=== PATIENT | female | born 1965 | race Caucasian/White ===

== ENCOUNTER 2016-08-28 09:07 | Day surgery (SDC) | payer OTHER ==
[~2016-08-28 09:07] MED LIST: CEFAZOLIN SODIUM 2 GRAM PREMIX 100 ML IV PRN; FENTANYL 100 MCG/2 ML VIAL ONE; MIDAZOLAM HCL 1 MG/ML 2ML VIAL ONE
[2016-08-28] MEDS ORDERED: LACTATED RINGERS 1,000 ML ONE (09:19)
[2016-08-28] MEDS ORDERED: IV START KIT ONE (09:19)
[2016-08-28] MEDS ORDERED: MIDAZOLAM HCL 1 MG/ML 2ML VIAL ONE (10:16)
[2016-08-28] MEDS ORDERED: ISOSULFAN BLUE ONE (10:49)
[2016-08-28] MEDS ORDERED: BUPIVACAINE 0.5% W/EPI SDV 30 ML VIAL ONE (10:49)
[2016-08-28] MEDS ORDERED: DIPHENHYDRAMINE HCL 50 MG/1 ML VIAL ONE (12:30)
[2016-08-28] MEDS ORDERED: PROPOFOL 20 ML IV ONE (12:30)
[2016-08-28] MEDS ORDERED: DEXAMETHASONE SOD PHOS 4 MG/1 ML VIAL ONE (12:30)
[2016-08-28] MEDS ORDERED: LIDOCAINE 2% (MULTI DOSE) 10 ML VIAL ONE (12:30)
[2016-08-28] MEDS ORDERED: ONDANSETRON 4 MG/2ML 2 ML VIAL ONE (12:30)
[2016-08-28] MEDS ORDERED: HYDROMORPHONE HCL 1 MG/ML SYRINGE IV PRN (12:31)
[2016-08-28] MEDS ORDERED: FENTANYL 100 MCG/2 ML VIAL IV PRN (12:31)
[2016-08-28] MEDS ORDERED: NALOXONE HCL 0.4 MG/ML VIAL IV PRN (12:31)
[2016-08-28] MEDS ORDERED: EPHEDRINE SULFATE UD SYR 25 MG 25 MG/5 ML SYRINGE IV ONE ×2 (12:31→12:43)
[2016-08-28] MEDS ORDERED: PROMETHAZINE HCL 25 MG/ML VIAL IM PRN (12:31)
[2016-08-28] MEDS ORDERED: ATROPINE SULFATE 0.4 MG/1 ML VIAL IV PRN (12:31)
[2016-08-28] MEDS ORDERED: ONDANSETRON 4 MG/2ML 2 ML VIAL IV PRN ×2 (12:31→15:38)
[2016-08-28] MEDS ORDERED: FENTANYL 100 MCG/2 ML VIAL ONE ×3 (12:38→15:05)
[2016-08-28] MEDS ORDERED: LACTATED RINGERS 1,000 ML IV SCH (12:45)
[2016-08-28] MEDS ORDERED: KETOROLAC TROMETHAMINE 30 MG/ML 1 ML VIAL ONE (14:15)
[2016-08-28] MEDS ORDERED: OXYCODONE/ACETAMINOPHEN 5/325 MG TABLET PO PRN (15:38)
[2016-08-28] MEDS ORDERED: MORPHINE SULFATE 2 MG/ML SYRINGE IV PRN (15:38)
[2016-08-28] MEDS ORDERED: KETOROLAC TROMETHAMINE 30 MG/ML 1 ML VIAL IV PRN (20:15)
--- NOTE | 2016-08-29 08:51 | OP ---
Geneva Lugo [id number] PROCEDURE: [place] lymph node injection. DESCRIPTION: This is a 51-year-old female undergoing lumpectomy and sentinel lymph node biopsy for invasive ductal carcinoma of the right breast. In the preoperative area she was injected with Technetium labeled Sulfur Colloid. Preinjection and postinjection assays were measured with an injected dose calculated at 1, 2, 3, 4 microcuries. The details to the operation will be delineated in a separate dictation. JOB: [id number]
--- NOTE | 2016-08-29 09:14 | OP ---
Geneva Lugo [id number] DATE: 08/28/2016 PREOPERATIVE DIAGNOSIS: Invasive ductal carcinoma, right breast. POSTOPERATIVE DIAGNOSIS: Invasive ductal carcinoma,, right breast. PROCEDURE: Right partial mastectomy, sentinel lymph node biopsy. SURGEON: Wili Kaiser M.D. PLANS EXAMINER: Cyril. ANESTHESIA: General endotracheal. INDICATION: This is a 51-year-old female who has biopsy proven invasive ductal carcinoma of the right breast, this is palpable. She presents for lumpectomy with sentinel lymph node biopsy. DESCRIPTION: With informed consent she was injected with Technetium labeled Sulfur Colloid in the preoperative area. Approximately an hour later she was taken back to the operating room and laid supine on the operating room table. General endotracheal anesthetic was administered. The right breast and axillary region were prepped and draped in a sterile fashion. Two mL of lymphazurin dye were injected in the subareolar region of the upper outer breast. This was gently messaged. We used a Galaxy probe to identified an area of increased radioactivity at the base of the axilla. Local anesthetic was administered. An oblique incision was made. We dissected down into the axillary tissue. We first identified blue lymphatic and followed this to a node. The node was dissected free with clips placed on feeding lymphatics and blood vessels. When this node was excised it had an EX vivo count of 312 at 10 seconds. We still had significant radioactivity within the axilla. I dissected and found another node with some activity. This node was not blue, it was larger, however. Clips were placed and it was excised. It had a 10 second count of 105, this was labeled as sentinel lymph node number 2. Deeper in the axilla was a smaller firmer node. This also was clipped and excised. It had a 10 second count of 763. It did have some blue hue to it. This is most likely the true sentinel node. After removing this third node the radioactivity dropped off significantly with a 10 second count of only 27. The wound was irrigated. We appeared to have adequate hemostasis. The wound was closed in layers with deeper 3-0 Vicryl and then running subcuticular 4-0 Monocryl in the skin. I made an incision on the upper inner part of the areola. A skin flap was creased in the upper inner breast and then under the areola. Using a combination of sharp dissection and electrocautery I dissected around the palpable abnormality. We dissected down to the chest wall. This created a fairly large lumpectomy specimen. Once it was excised it was labeled with a short stitch superior, long stitch lateral, and a double stitch deep. This was handed off to pathology. The wound was irrigated with sterile water. We appeared to have adequate hemostasis. I did reapproximate the breast capsule with some 3-0 Vicryl and the skin was closed with a running subcuticular 4-0 Monocryl. Mastisol and Steri-Strips were placed to both incisions. Sterile dressings were applied. She was hemodynamically stable during the procedure and was taken to the recovery room in stable condition. Note was made that needle, instrument, and lap counts were reported as correct at the time of closure. JOB: [id number] CC: Dr. Cinda Wolf
--- NOTE | 2016-08-30 13:59 | SURGPATH ---
[facility] [address] [place] [id number] Patient Name: JAIDEN BARRIOS MR#: [id number] : 1965 Gender: F Specimen #: [id number] Collected: 08/28/2016 Received: 08/29/2016 Reported: 11/16/2016 Submitting Phys: JAQUI CASTRO Copy To Phys: [facility] Amended Report Reason: PATHOLOGIST UPDATE Comment: Changed distances to two margins. Original Text will be in double brackets [[ ]] NEW TEXT WILL BE IN BOLD PRINT Clinical History / Pre-Operative Diagnosis: Invasive ductal carcinoma, right breast Specimen Source / Surgical Procedure Performed: #1-rIGHT axillary sentinel lymph node #1; #2-rIGHT axillary sentinel lymph node #2; #3-right axillary sentinel lymph node #3; #4-right breast lumpectomy (short-superior, long-lateral, double-deep) HIGH PRIORITY DIAGNOSIS. REQUIRES CLINICAL ATTENTION Interpretation: 1. LYMPH NODE, RIGHT AXILLARY SENTINEL #1, BIOPSY: - POSITIVE FOR METASTATIC CARCINOMA IN ONE OUT OF ONE LYMPH NODE (1/). - INVOLVED LYMPH NODE MEASURES 0.2 CM IN MAXIMUM DIMENSION. - TUMOR DOES NOT EXTEND BEYOND LYMPH NODE CAPSULE. 2. LYMPH NODE, RIGHT AXILLARY SENTINEL #2, BIOPSY: - POSITIVE FOR METASTATIC CARCINOMA IN ONE OUT OF ONE LYMPH NODE (1/). - INVOLVED LYMPH NODE MEASURES 0.7 CM IN MAXIMUM DIMENSION. - TUMOR EXTENDS BEYOND LYMPH NODE CAPSULE. 3. LYMPH NODE, RIGHT AXILLARY SENTINEL #3, BIOPSY: - NO EVIDENCE OF MALIGNANCY IN ONE LYMPH NODE (0/1). 4. BREAST, RIGHT, LUMPECTOMY: - INVASIVE DUCTAL CARCINOMA, GRADE 2, WITH ASSOCIATED DUCTAL CARCINOMA IN SITU, SOLID AND CRIBRIFORM TYPES, INTERMEDIATE NUCLEAR GRADE. - STAGE: pT3, (sn)pN1a. - SEE SYNOPTIC REPORT. BREAST CANCER CASE SUMMARY: SPECIMEN IDENTIFICATION: Right breast, lumpectomy, with sentinel node, without other nodes TUMOR SITE: Upper inner quadrant TUMOR SIZE: Dimension of largest focus of invasion: 6.2 cm TUMOR FOCALITY: Single focus of invasive carcinoma HISTOLOGIC TYPE: Invasive ductal carcinoma TNM DESCRIPTORS: Not applicable PRIMARY TUMOR STAGE: pT3: Tumor >50 mm in greatest dimension REGIONAL LYMPH NODE STAGE: sn: Only sentinel nodes evaluated pN1a: Metastases in 1 to 3 axillary lymph nodes IMER COMBINED HISTOLOGIC GRADE: Grade 2 (Total score 7 ) TUBULE FORMATION: Minimal - less than 10% (score=3) NUCLEAR PLEOMORPHISM: Marked variation in size (score=3) MITOTIC RATE: Score=1 SKIN INVOLVEMENT: Skin not present SKELETAL MUSCLE INVOLVEMENT: Skeletal muscle not present ASSOCIATED DUCTAL CARCINOMA IN SITU: DCIS is present ESTIMATED EXTENT OF DCIS: Greatest dimension: Multiple foci over a 5.5 cm maximum distance Number of blocks with DCIS: 11 Number of blocks examined: 12 ARCHITECTURAL PATTERN OF DCIS: Solid and cribriform NUCLEAR GRADE OF DCIS Grade II (intermediate) NECROSIS IN DCIS: Present, focal LOBULAR CARCINOMA IN SITU (LCIS): Not identified MARGINS: Margins uninvolved by invasive carcinoma: Distance from closest margin: 2 mm, superior Distance from superior margin: 2 mm Distance from inferior margin: ++5 mm++ [[12 mm]] Distance from anterior margin: 5 mm Distance from posterior margin: 8 mm Distance from medial margin: 4 mm Distance from lateral margin: 4 mm Margins uninvolved by DCIS: Distance from closest margin: 2 mm, anterior ++and posterior++ Distance from superior margin: 3 mm Distance from inferior margin: 5 mm Distance from anterior margin: 2 mm Distance from posterior margin: ++2 mm++ [[5 mm]] Distance from medial margin: 4 mm Distance from lateral margin: 10 mm LYMPH NODES: Total nodes involved:Total nodes examined (including sentinel nodes): ( 2 / 3 ) Total sentinel nodes involved / Total sentinel nodes examined: ( 2 / 3 ) Size of largest metastasis: 7 mm Extranodal extension: Present Number of lymph nodes with macrometastases (>2.0 mm): 1 Number of lymph nodes with micrometastases (>0.2 mm to 2.0 mm): 1 Number of lymph nodes with isolated tumor cells (d0.2 mm): 0 RESPONSE TO PRESURGICAL THERAPY IN THE BREAST: No known presurgical therapy RESPONSE TO PRESURGICAL THERAPY IN THE LYMPH NODES: No known presurgical therapy LYMPH VASCULAR INVASION: Present DERMAL LYMPH VASCULAR INVASION: Skin not present MICROCALCIFICATIONS: Present in DCIS and invasive carcinoma ANCILLARY STUDIES: ER: Positive (100%, strong intensity) (Estrogen receptor clone [id number]) PgR: Positive (100%, strong intensity) (Progesterone receptor clone 16) HER2: Negative (1+) (IHC, clone [id number]) Performed on prior case [id number] ADDITIONAL PATHOLOGIC FINDINGS: None Electronically Signed Out Keagan Freitas M.D., Ph.D. Gross Description: #1 The specimen is received in a formalin filled container labeled with the patient's name and "right axillary sentinel lymph node #1". It focally fatty, yellow-collins tentatively identified lymph node is 1.8 x 1.0 x 0.8 cm. The specimen is multiply cross section to reveal extensive fatty replacement. Totally embedded as four sections in cassette #1. #2 The specimen is received in a formalin filled container labeled with the patient's name and "right axillary sentinel lymph node #2". A lobular excision of yellow-collins, fibrofatty tissue is 3.5 x 1.4 x 1 cm. Sectioning reveals two fatty, yellow-collins tentatively identified lymph nodes, 1.4 x 0.7 x 0.5 cm and 2.0 x 1.2 x 1 cm. The smaller node is inked black. Each is multiply cross sectioned to reveal extensive fatty replacement. Totally embedded in cassette #2. #3 The specimen is received in a formalin filled container labeled with the patient's name and "right axillary sentinel lymph node #3". A lobular biopsy of yellow-collins, fibrofatty tissue is 1.3 x 1.0 x 0.8 cm. Sectioning reveals a 0.8 x 0.6 x 0.4 cm fatty, yellow-collins tentatively identified lymph node. Totally embedded as three sections in cassette #3. #4 The specimen is received in a formalin filled container labeled with the patient's name and "right breast lumpectomy". SPECIMEN: Right breast lumpectomy Fixation: Time intact specimen was in formalin 19 hours; time cut specimen was in formalin, 7.5 hours Tissue(s) included: Right breast tissue Section, unsectioned before receipt: Unsectioned Weight:81 grams Dimensions: 7 cm medial to lateral, 5.5 cm from anterior to posterior, 5 cm from superior to inferior Dimensions and description of skin (if included): Not included Orientation (if specified): Short-superior, long-lateral, double-deep (posterior) Margin designation: anterior orange, posterior black, superior blue, inferior green, medial red, lateral yellow. TUMOR: Size: 6.2 cm medial to lateral, 3.6 cm superior to inferior, 4.2 cm anterior to posterior Descriptive features: Ill-defined, stellate and gritty melo-collins Status of surgical margins: 0.5 cm-anterior and medial, 1 cm-superior and inferior, 2 cm-posterior, 2.5 cm-lateral Correlation with imaging studies: Not applicable Other(s): The specimen is multiply sectioned perpendicular to the medial/lateral axis, into 12 slices, to reveal predominantly soft lobular adipose tissue with a small to moderate amount of dense, pale lópez fibroglandular tissue. The mass spans slice #2-#7. Sections are submitted from medial to lateral respectively. TISSUE(S) SUBMITTED FOR MICROSCOPIC EVALUATION: 4A-two perpendicular sections from slice #1, medial end 4B-anterior half of slice #2, including medial edge of the mass 4C-posterior half of slice #2 4D-anterior third from slice #5, including mass 4E-superior half of middle third of slice #5, including mass 4F-inferior half of middle third of slice #5, including mass 4G-posterior third from slice #5 4H-anterior third from slice #7, including lateral edge of mass 4I-superior half of middle third of slice #7, including lateral edge of mass 4J-inferior half of middle third of slice #7, including lateral edge of mass 4K-posterior third of slice #7 4L-two perpendicular sections from slice #12, lateral end Mart Hutchison Microscopic Description: 1. Examination of multiple levels from the right axillary sentinel lymph node #1 biopsy shows one lymph node partially involved by metastatic carcinoma. The involved lymph node measures 0.2 cm in maximum dimension. Tumor does not extend beyond the lymph node capsule. 2. Examination of multiple levels from the right axillary sentinel lymph node #2 biopsy shows one lymph node partially involved by metastatic carcinoma. The involved lymph node measures 0.7 cm in maximum dimension. Tumor extends beyond the lymph node capsule. 3. Examination of multiple levels from the right axillary sentinel lymph node #3 biopsy shows a single histologically unremarkable lymph node. There is no evidence of malignancy. 4. Examination of multiple sections from the right breast lumpectomy specimen shows invasive ductal carcinoma with associated ductal carcinoma in situ, solid and cribriform types, intermediate nuclear grade. Please see synoptic report for complete details. Amendments: Amended: 11/16/2016 by Keagan Freitas M.D., Ph.D. Previous Signout Date: 08/30/2016 1: [id number] 2: 20071 3: [id number] 4: [id number], [id number] C50.211
== END 2016-08-28 16:05 | disposition home or self-care (01) ==
LOC: SDC 09:07
PROVIDERS: ATTEND Surgery
PROC: 0HBT0ZZ Excision of Right Breast, Open Approach (ICD-10-PCS; principal; 2016-08-28)
PROC: 0HBT0ZX Excision of Right Breast, Open Approach, Diagnostic (ICD-10-PCS; 2016-08-28)
DX: C50.111 Malignant neoplasm of central portion of right female breast (principal); Z85.828 Personal history of other malignant neoplasm of skin; E11.9 Type 2 diabetes mellitus without complications; R91.8 Other nonspecific abnormal finding of lung field
CPT/HCPCS: 38792; 19301; 38525; J1200; J3010 ×4; J1100; A9270; J1885; J2250; J2405; J7120; Q9968; J2001; A9541

== ENCOUNTER 2016-10-23 11:53 | Day surgery (SDC) | payer OTHER ==
[~2016-10-23 11:53] MED LIST changes: +CEFAZOLIN SODIUM 2 GRAM PREMIX 100 ML IV ONE; +IV START KIT ONE; +LACTATED RINGERS 1,000 ML ONE; +ONDANSETRON 4 MG/2ML 2 ML VIAL ONE; +PROPOFOL 20 ML IV ONE
[2016-10-23] MEDS ORDERED: Heparin Sodium Flush 50 unit/5 ml syringe ONE (12:31)
[2016-10-23] MEDS ORDERED: BUPIVACAINE 0.5% W/EPI SDV 30 ML VIAL ONE (12:31)
[2016-10-23] MEDS ORDERED: ISOSULFAN BLUE ONE (12:31)
[2016-10-23] MEDS ORDERED: LIDOCAINE 1%/EPI 1:100,000 (MULTI DOSE) 30 ML VIAL ONE (12:31)
[2016-10-23] MEDS ORDERED: SODIUM CHLORIDE 0.9% 50 ML ONE (12:31)
[2016-10-23] MEDS ORDERED: BUPIVACAINE 0.5% (PRES FREE) 30 ML VIAL ONE (12:31)
[2016-10-23] MEDS ORDERED: LABETALOL HCL 5 MG/ML 20ML VIAL IV PRN (12:49)
[2016-10-23] MEDS ORDERED: HYDRALAZINE HCL 20 MG/1 ML VIAL IV PRN (12:49)
[2016-10-23] MEDS ORDERED: ATROPINE SULFATE 0.4 MG/1 ML VIAL IV PRN (12:49)
[2016-10-23] MEDS ORDERED: ONDANSETRON 4 MG/2ML 2 ML VIAL IV PRN ×2 (12:49→17:04)
[2016-10-23] MEDS ORDERED: MEPERIDINE 25 MG/ML SYRINGE IV PRN (12:49)
[2016-10-23] MEDS ORDERED: NALOXONE HCL 0.4 MG/ML VIAL IV PRN (12:49)
[2016-10-23] MEDS ORDERED: PROMETHAZINE HCL 25 MG/ML VIAL IM PRN (12:49)
[2016-10-23] MEDS ORDERED: FENTANYL 100 MCG/2 ML VIAL IV PRN (12:49)
[2016-10-23] MEDS ORDERED: DEXAMETHASONE SOD PHOS 4 MG/1 ML VIAL ONE (12:51)
[2016-10-23] MEDS ORDERED: LACTATED RINGERS 1,000 ML IV SCH ×2 (13:00→17:04)
[2016-10-23] MEDS ORDERED: EPHEDRINE SULFATE UD SYR 25 MG 25 MG/5 ML SYRINGE IV ONE (13:19)
[2016-10-23] MEDS ORDERED: FENTANYL 100 MCG/2 ML VIAL ONE ×3 (13:30→15:01)
[2016-10-23] MEDS ORDERED: GLYCOPYRROLATE 0.2 MG/ML 1ML VIAL ONE (13:36)
[2016-10-23] MEDS ORDERED: DIPHENHYDRAMINE HCL 50 MG/1 ML VIAL ONE (15:51)
--- NOTE | 2016-10-23 16:17 | RAD ---
ANNIE for CATHETER/TUBE PLCMT HISTORY: Port-A-Cath catheter placement. COMPARISONS: None. FINDINGS: 2 fluoroscopic images were submitted for review during placement of a Port-A-Cath catheter. The tip projects at the approximate location of the atrial caval junction. A total of 29.5 seconds of fluoroscopy was utilized for the examination. IMPRESSION: 1. Intraoperative fluoroscopy for placement of a Port-A-Cath catheter as discussed above.
--- NOTE | 2016-10-23 16:25 | RAD ---
CHEST - 1 VIEW HISTORY: Port-A-Cath catheter placement. COMPARISONS: None. FINDINGS: A single view of the chest was performed demonstrating an indwelling left-sided Port-A-Cath catheter. The tip appears to project at the atrial caval junction. No pneumothorax is visualized. There are postsurgical changes within the right axillary region with what is likely a drainage catheter within the inferior portion of the right axilla. The heart size is appropriate. IMPRESSION: 1. Placement of a left-sided Port-A-Cath catheter with its tip projecting at the expected location of the atrial caval junction. No pneumothorax is visualized. 2. Postsurgical changes within the right axilla with what is likely a drainage catheter within the inferior portion of the right axilla.
[2016-10-23] MEDS ORDERED: HYDROMORPHONE HCL 1 MG/ML SYRINGE ONE (16:28)
[2016-10-23] MEDS: HYDROMORPHONE HCL 1 MG/ML SYRINGE IV PRN ×2 (16:36→16:43)
[2016-10-23] MEDS ORDERED: ACETAMINOPHEN 325 MG TABLET PO PRN (17:04)
[2016-10-23] MEDS ORDERED: DIPHENHYDRAMINE HCL 50 MG/1 ML VIAL IV PRN (17:04)
[2016-10-23] MEDS ORDERED: OXYCODONE HCL 5 MG TABLET PO PRN (17:04)
[2016-10-23] MEDS ORDERED: KETOROLAC TROMETHAMINE 30 MG/ML 1 ML VIAL IV PRN (17:04)
[2016-10-23] MEDS ORDERED: MORPHINE SULFATE 2 MG/ML SYRINGE IV PRN (17:04)
[2016-10-23] MEDS ORDERED: MORPHINE SULFATE 4 MG/ML SYRINGE IV PRN (17:13)
[2016-10-23] MEDS ORDERED: MORPHINE SULFATE 10 MG/ML SYRINGE IV PRN (17:14)
[2016-10-23] MEDS ORDERED: PUMP TUBING ONE (17:28)
--- NOTE | 2016-10-23 18:43 | OP ---
JAIDEN BARRIOS [id number] DATE OF OPERATION: October 23, 2016 PREOPERATIVE DIAGNOSIS: Invasive ductal carcinoma right breast with axillary metastasis. POSTOPERATIVE DIAGNOSIS: Invasive ductal carcinoma right breast with axillary metastasis. PROCEDURE: 1. RIGHT COMPLETION AXILLARY LYMPH NODE DISSECTION. 2. LEFT SUBCLAVIAN POWERPORT PLACEMENT. SURGEON: Wili Kaiser M.D. SPARK PLUG TESTER: Sena Torres ANESTHESIA: General anesthesia by Rishi Partida C.R.N.A. INDICATIONS: This is a 51-year-old female who was found to have invasive ductal carcinoma of the right breast. She underwent lumpectomy and sentinel lymph node biopsy. She was found to have axillary metastasis with extracapsular invasion. The size of the tumor and the presence of extracapsular extension made it advisable to proceed with completion axillary lymph node dissection. She is going to proceed with adjuvant chemotherapy as well. DESCRIPTION: With informed consent she was taken to the operating room. She was laid supine on the operating room table. General anesthesia was administered. The upper chest and right axillary region were prepped and draped in a sterile fashion. Local anesthetic was administered in her prior scar. This was incised with a knife. We dissected down through some scar tissue using electrocautery. Eventually I was able to get around the scar tissue and extend this on the anterior aspect to the chest wall. I dissected cephalad along the pectoralis major and minor up until we identified an axillary vein. This was followed out laterally. I identified a long thoracic nerve along the chest wall. It was moderately difficult but eventually did identify the thoracodorsal nerve. I dissected the lymphatic tissue away from this area using clips on the feeding lymphatics and blood vessels. There appeared to be an intercostobrachial nerve extending over to the arm that went right through the lymphatics and scar tissue. This was sacrificed. Eventually I was able to excise the lymphatic tissue from the landmarks described. I extended this down lateral and inferior beyond the sentinel lymph node biopsy scarring. Eventually the specimen was removed and sent to pathology. I inspected the cavity and found intact nerves with no residual visible or palpable lymphadenopathy. The wound was irrigated with sterile water. We appeared to have adequate hemostasis. A #7 flat Hamilton-Murguia drain was placed in the wound actually through a stab incision inferiorly. The axillary capsule was reapproximated with interrupted #3-0 Vicryl. The skin was closed with a running subcuticular #4-0 Monocryl. Mastisol and SteriStrips were placed. Drain was sutured to the skin with a #2-0 nylon and placed to bulb suction. Sterile dressings were applied. Using new gown and gloves and new instruments, we then turned our attention to the left chest wall. Local anesthetic was administered. A small stab incision was made. A needle was used to cannulate the left subclavian vein. A J-wire was placed. The needle was withdrawn. Fluoroscopy demonstrated the wire in the superior vena cava. An oblique incision was made from that point in the chest wall. A prepectoral pocket was created with blunt dissection. A dilator introducer was placed over the wire. The dilator and wire were removed. The catheter was placed through the introducer. The tip was localized at the superior vena cava/right atrial junction. The tear-away introducer was removed. It was cut to length and attached to a port. This was placed in the prepectoral pocket and secured at two points using some #2-0 Prolene. I accessed the port. It easily withdrew and flushed easily. I did put some heparinized saline within it. The wound was irrigated with water. Subcutaneous tissues were brought together with #3-0 Vicryl. The skin was closed with a running subcuticular #4-0 Monocryl. Mastisol and SteriStrips were placed. Sterile dressings were applied. She tolerated the procedure and was taken to the recovery room in stable condition. Note was made that needle, instrument and lap counts were reported as correct at time of closure. [id number] Cc: Shellie Wolf M.D. Roberto Duran M.D.
--- NOTE | 2016-10-24 07:05 | PDOC43 ---
- Subjective Subjective: Reports Pain Tolerable, Denies Nausea - Objective Vital Signs Temperature 97.9 F 10/24/16 03:12 Pulse Rate 61 10/24/16 03:12 Respiratory Rate 18 10/24/16 04:49 Blood Pressure 96/56 10/24/16 03:12 O2 Saturation by Pulse Oximetry 98 10/24/16 03:12 Oxygen Delivery Method Room Air Oxygen Flow Rate 0 Active Medication Orders Category Date Time Status Acetaminophen [Tylenol] Med 10/23/16 17:04 Active 650 mg PO Q6H PRN Cyclosporine [Restasis] Med 10/23/16 21:00 Pending 0 gtts IO BID Diphenhydramine HCl [Benadryl] Med 10/23/16 17:04 Active 25 - 50 mg IV Q6H PRN Ketorolac Tromethamine [Toradol] Med 10/23/16 17:04 Active 30 mg IV Q6H PRN Lactated Ringers 1,000 ml Med 10/23/16 17:04 Active IV 75 mls/hr Morphine Sulfate Med 10/23/16 17:04 Active 1 - 6 mg IV Q1H PRN Morphine Sulfate Med 10/23/16 17:13 Active 1 - 6 mg IV Q1H PRN Morphine Sulfate Med 10/23/16 17:14 Active 1 - 6 mg IV Q1H PRN Ondansetron 4 mg/2ml Vial [Zofran] Med 10/23/16 17:04 Active 4 mg IV Q6H PRN Oxycodone HCl [Roxicodone] Med 10/23/16 17:04 Active 5 - 10 mg PO Q4H PRN Sodium Chloride 0.9% Flush [Normal Saline 10ml Flush] Med 10/23/16 17:15 Active 10 ml IV PRN PRN Sodium Chloride 0.9% Flush [Normal Saline 10ml Flush] Med 10/24/16 01:00 Active 10 ml IV Q8HR Intake and Output 10/23/16 10/24/16 10/25/16 06:59 06:59 06:59 Intake Total 1600 Output Total 40 Balance 1560 Tubes and Drains Output PHYLLIS #1 30 General: Alert, Oriented x3 Wound: Dressing Clean/Dry/Intact, Drainage (Serosanguinous.) - Assessment/ Plan (1) Breast cancer metastasized to axillary lymph node Status: AcuteAssessment/ Plan: Doing well. Discharge this am. Follow up in 7-10 days or when drain output drops off.
[2016-10-24 07:22] VITALS: BP 100/58
--- NOTE | 2016-10-25 09:31 | SURGPATH ---
[facility] [address] [place] [id number] Patient Name: JAIDEN BARRIOS MR#: [id number] : 1965 Gender: F Specimen #: [id number] Collected: 10/23/2016 Received: 10/24/2016 Reported: 10/25/2016 Submitting Phys: JAQUI CASTRO Copy To Phys: [facility] Clinical History / Pre-Operative Diagnosis: BREAST CANCER Specimen Source / Surgical Procedure Performed: RIGHT AXILLARY NODE DISSECTION Interpretation: RIGHT AXILLARY LYMPH NODE DISSECTION: - ONE OUT OF TWO LYMPH NODES WITH METASTATIC ADENOCARCINOMA (1/2) - EXTRACAPSULAR EXTENSION BY TUMOR IS IDENTIFIED - LYMPHOVASCULAR SPACE INVASION BY TUMOR IS IDENTIFIED Comment: In conjunction with the prior case ([id number]), there is a total of 3/5 lymph nodes with metastatic adenocarcinoma. The updated pathologic is pT3, pN1a. Electronically Signed Out Alexy Park M.D. Gross Description: The specimen is received in a formalin filled container labeled with the patient's name and "right axillary node dissection". A lobular excision of yellow-collins, fibrofatty soft tissue is 8.0 x 6.0 x 3.0 cm and 56 g. Sectioning reveals lobular, yellow to melo-collins fibroconnective and fatty soft tissue with numerous embedded metallic clips. There are areas of hemorrhage. The areas consistent with a previous biopsy site within the surrounding soft fibroadipose tissue are two yellow-collins tentatively identified lymph nodes, 1.0 x 0.7 x 0.7 cm and 2.0 x 1.0 x 0.7 cm. The larger lymph node has a white melo indurated cut surface. Summary of sections: A-C-biopsy site D-smaller lymph node trisected E-larger lymph node multiply sectioned Mart Hutchison Microscopic Description: The sections of the tissue show an area of dense fibrosis consistent with a prior sentinel lymph node biopsy site. This site does not show residual tumor. There are 2 additional lymph nodes. The larger lymph node shows involvement by metastatic adenocarcinoma with an area showing lymphovascular space invasion outside of the capsule. Extracapsular extension by tumor is also identified. 1: 22336 C77.3
== END 2016-10-24 08:10 | disposition home or self-care (01) ==
LOC: SDC 11:53 → MS 17:04 → SDC 10-24 08:10
PROVIDERS: ATTEND Surgery
PROC: 07B50ZX Excision of Right Axillary Lymphatic, Open Approach, Diagnostic (ICD-10-PCS; principal; 2016-10-23)
DX: C77.3 Secondary and unspecified malignant neoplasm of axilla and upper limb lymph nodes (principal); C50.211 Malignant neoplasm of upper-inner quadrant of right female breast; E11.9 Type 2 diabetes mellitus without complications; Z85.828 Personal history of other malignant neoplasm of skin
CPT/HCPCS: 38525; 36561; 71010; 77001; J1200; J1170; J3010 ×4; J1100; A9270; J1885; J2250; J2405 ×2; J7120 ×2; J1642; J0690